=== PATIENT | male | born 1950 | race Caucasian/White ===

== ENCOUNTER → 2016-09-13 | Day surgery (SDC) | payer MEDICARE, OTHER ==
[~2016-09-13] MED LIST: ASPIRIN EC81 M1 PO; CINNAMON PO; FISH OIL 1,001000 M2 PO; JANUMET XR 50-1 EACH PO; LIPITOR20 MG PO; METFORMIN HCL500 M3 PO; MIRALAX PO; MONTELUKAST SOD10 MG PO; MULTI VITAMIN1 EACH PO; OMEPRAZOLE20 M1 PO; SILDENAFIL20 MG PO; VITAMIN C1000 M2 PO
--- NOTE | ~2016-09-13 | OR ---
Unit #: [id number] #: [id number] Patient: ARELY DA SILVA [id number] [address] [place], [place] [address] [id number] MR#: [id number] NAME: ARELY DA SILVA ROOM: Date of Procedure: 09/13/2016 Admission Date: 09/13/2016 Surgeon: Dilan Dong M.D. : 1950 Attending Physician: Dilan Dong M.D. Primary Care Physician: Josh Preston M.D. OPERATIVE REPORT PROCEDURE PERFORMED 1. Esophagogastroduodenoscopy with biopsy. 2. Colonoscopy with biopsy with removal of polyps. INDICATIONS FOR PROCEDURE Average risk for colorectal cancer, chronic GERD symptoms. MEDICATIONS Monitored anesthesia. POSTOPERATIVE FINDINGS 1. Normal esophagus, mild gastritis and normal duodenum and distal duodenum. 2. Colonoscopy completed to cecum. Prep was good. 3. Two polyps, 2 to 3 mm each, transverse colon, removed using biopsy forceps. 4. Two polyps, 2 to 3 mm each, sigmoid colon, removed using biopsy forceps. 5. Small internal hemorrhoids. PLAN If adenomatous, repeat colonoscopy in 5 years. Reflux precautions and PPIs. DESCRIPTION OF PROCEDURE The patient was explained of the procedure, risks, and benefits along with the risks and benefits of anesthesia. He was brought to the endoscopy room. Propofol anesthesia was given. Bite block was placed. The scope was passed down the mouth into esophagus, stomach, duodenum, and distal duodenum. Biopsies taken. Gently, the scope was pulled out. He tolerated this part very well. At this time, he was turned around and repositioned for colonoscopy. Rectal exam was done, which was normal. Colonoscope was lubricated, passed up the rectum, advanced under direct vision all the way to the cecum. Cecum was identified by ileocecal valve and appendiceal orifice. Several polyps were seen, which were small, removed using biopsy forceps. I retroflexed in the rectum, small hemorrhoids seen. The scope was gently pulled out. He tolerated it well. No major complications seen. Dictated by... Unit #: [id number] #: [id number] Patient: ARELY DA SILVA Johnnie Lucia/karmen TD: 09/13/2016 08:36 JOB #: [id number] OPERATIVE REPORT Page 1 of 1 X Dilan Dong MD PROCEDURE OPERATIVE NOTE
== END | disposition home or self-care (01) ==
LOC: COPS 06:49
DX: Z12.11 Encounter for screening for malignant neoplasm of colon (principal); D12.3 Benign neoplasm of transverse colon; D12.5 Benign neoplasm of sigmoid colon; K29.50 Unspecified chronic gastritis without bleeding; K64.8 Other hemorrhoids; K21.9 Gastro-esophageal reflux disease without esophagitis; E11.9 Type 2 diabetes mellitus without complications; J44.9 Chronic obstructive pulmonary disease, unspecified; Z79.84 Long term (current) use of oral hypoglycemic drugs; Z79.899 Other long term (current) drug therapy; Z90.89 Acquired absence of other organs; Z98.890 Other specified postprocedural states
CPT/HCPCS: 82947; 88305; 88312; J2250